=== PATIENT | female | born 1960 | race Caucasian/White ===

== ENCOUNTER 2017-07-05 19:14 | Emergency (ER) | payer OTHER ==
[2017-07-05 19:26] VITALS: RESP 18
[2017-07-05] MEDS ORDERED: DIPH,PERTUS(ACELL)TETVAC-LF 0.5 ML VIAL IM ONE (19:48)
[2017-07-05] MEDS ORDERED: TOPICAL SKIN ADHESIVE 1 EACH AMP TOPICAL ONE (19:49)
--- NOTE | 2017-07-05 19:49 | ED ---
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 She reports that she cut the distal tip of her fourth finger. She does not know the status of her tetanus vaccine. She has full range of motion noted of the finger. No fever or chills, numbness or tingling down hand, chest pain, shortness breath, nausea or vomiting or headaches. Patient reports that she has run sensation to the distal tip of the finger. - Related Data Home Medications Medication Instructions Recorded Confirmed Celecoxib [CeleBREX] 200 mg PO BID 07/05/17 07/05/17 Citalopram Hydrobromide [CeleXA] 40 mg PO DAILY 07/05/17 07/05/17 Levothyroxine Sodium [Synthroid] 125 mcg PO DAILY 07/05/17 07/05/17 Allergies Allergy/AdvReac Type Severity Reaction Status Date / Time Penicillins Allergy Unknown Verified 07/05/17 19:39 Childhood Review of Systems ROS Statement: Those systems with pertinent positive or pertinent negative responses have been documented in the HPI. ROS Other: All systems not noted in ROS Statement are negative. Past Medical History Past Medical History: No Reported History History of Any Multi-Drug Resistant Organisms: None Reported Past Surgical History: Cholecystectomy, Hysterectomy Past Psychological History: No Psychological Hx Reported Smoking Status: Current every day smoker Past Alcohol Use History: Rare Past Drug Use History: None Reported General Exam - General Exam Comments Initial Comments: this is a well-appearing 56-year-old female. No distress. General: Well appearing, well nourished, in no distress. Oriented x 3, normal mood and affect . Ambulating without difficulty. Skin: Good turgor, no rash, unusual bruising or prominent lesions Hair: Normal texture and distribution. HEENT: Head: Normocephalic, atraumatic, no visible or palpable masses, depressions, or scaring. Neck: Supple Heart: No cardiomegaly or thrills; regular rate and rhythm, no murmur or gallop Lungs: Clear to auscultation and percussion Extremities: No amputations or deformities, cyanosis, edema or varicosities, peripheral pulses intact patient is a partially a 1 cm flap laceration over the distal tip of the left fourth finger. Musculoskeletal: Normal gait and station. Neurologic: CN 2-12 normal. Sensation to pain, touch, and proprioception normal. No pathologic reflexes. Psychiatric: Oriented X3, intact recent and remote memory, judgment and insight , normal mood and affect. Limitations: no limitations Course Vital Signs 07/05/17 07/05/17 19:21 20:46 Temperature 98.6 F 98.3 F Pulse Rate 65 74 Respiratory 18 18 Rate Blood Pressure 119/68 113/74 O2 Sat by Pulse 98 94 L Oximetry Procedures - Laceration Laceration #1 Site: other (finger ) Size (cm): 1 Description: linear Depth: simple, single layer Anesthetic Used: lidocaine 1% Anesthesia Technique: local infiltration Amount (mls): 2 Pre-repair: wound explored, irrigated extensively Size of Sutures: 6-0 Number of Sutures: 3 Technique: simple, interrupted Patient Tolerated Procedure: well, no complications Medical Decision Making - Medical Decision Making 56-year-old female chief complaint of a left fourth finger distal tip laceration. She cut on a slicer at work. She has full range of motion. Laceration is superficial. With continued to bleed. I did numb the area and cleaned with iodine and normal saline. Patient wound was closed with 3 small simple sutures. She was given updated tetanus shot. Discussed monitoring for any signs of infection. Discussed wound care. Patient understands treatment plan will comply. Return parameters were discussed. Disposition Clinical Impression: Finger laceration Disposition: HOME SELF-CARE Condition: Good Instructions: Finger Laceration (ED) Additional Instructions: Please return to the emergency room in 5 to 7 days to have sutures removed. Please leave wound covered for the first 24-48 hours and then leave open to air after that time. Please use clean soap and water to clean the suture area to prevent scabbing over the top of your sutures. Please watch for any signs of infection which may include but not limited to increased pain, swelling, redness , fever or chills. Please return to the emergency room if any signs of infection do occur. Please return to the emergency room for any other concerns or complications. Referrals: Kelvin Gomez MD [Primary Care Provider] - 1-2 days Time of Disposition: 19:49
[2017-07-05 20:48] VITALS: BP 113/74; PULSE 74; TEMP 98.3
== END 2017-07-05 20:48 | disposition home or self-care (01) ==
LOC: EC 19:14
DX: S61.215A Laceration without foreign body of left ring finger without damage to nail, initial encounter (principal); F17.200 Nicotine dependence, unspecified, uncomplicated; Z79.899 Other long term (current) drug therapy; Z88.0 Allergy status to penicillin; Z23 Encounter for immunization; W45.8XXA Other foreign body or object entering through skin, initial encounter; Y93.G9 Activity, other involving cooking and grilling; Y92.69 Other specified industrial and construction area as the place of occurrence of the external cause; Y99.0 Civilian activity done for income or pay
CPT/HCPCS: 12001; 90471; 90715; 99283